=== PATIENT | female | born 1985 | race Caucasian/White ===

== ENCOUNTER 2021-07-20 14:42 | Emergency (ER) | payer MEDICAID ==
[2021-07-20 15:20] VITALS: O2SAT 98
--- NOTE | 2021-07-20 15:23 | ERPHSYRPT ---
- History of Present Illness Time Seen by Provider: 07/20/21 15:22 Source: patient Exam Limitations: no limitations Patient Subjective Stated Complaint: PT states "I am a parapleigic and I was getting help moving from the commode and heard my left ankle pop really loud. A lso my left knee has been bothering me." Triage Nursing Assessment: Pt presented alert and oriented X 3, skin pwd Pt ambulates with an upright steady gait, able to speak in clear full sentences pt in no apparent respiratory distress. Method of Injury: twisted Occurred: just prior to arrival Quality: intermittent Severity of Pain-Max: moderate Severity of Pain-Current: moderate Lower Extremities Pain: ankle: left Modifying Factors: Improves With: nothing Associated Symptoms: none Allergies/Adverse Reactions: No Known Drug Allergies Allergy (Verified 07/20/21 15:20) Home Medications: Baclofen 20 mg PO DAILY 07/20/21 [History] Citalopram Hydrobromide [Citalopram HBr] 40 mg PO DAILY 07/20/21 [History] Diazepam [Valium] 10 mg PO BID 07/20/21 [History] Ergocalciferol (Vitamin D2) [Vitamin D2] 1,250 mcg PO DAILY 07/20/21 [History] Gabapentin 300 mg [Neurontin 300 mg] 300 mg PO DAILY 07/20/21 [History] Medroxyprogesterone Acetate 150 mg IM WEEKLY 07/20/21 [History] Hx Tetanus, Diphtheria Vaccination/Date Given: No Hx Influenza Vaccination/Date Given: No Hx Pneumococcal Vaccination/Date Given: No Immunizations Up to Date: Yes Travel Risk - International Travel Have you traveled outside of the country in past 3 weeks: No - Coronavirus Screening Are you exhibiting any of the following symptoms?: No Close contact with a COVID-19 positive Pt in past 14-21 Days: No - Vaccine Status Have you recieved a Covid-19 vaccination: No - Review of Systems Constitutional: No Symptoms Eyes: No Symptoms, Foreign Body Sensation Ears, Nose, & Throat: No Symptoms Respiratory: No Cough, No Dyspnea Cardiac: No Chest Pain, No Edema, No Syncope Abdominal/Gastrointestinal: No Abdominal Pain, No Nausea, No Vomiting, No Diarrhea Genitourinary Symptoms: No Dysuria Musculoskeletal: No Back Pain, No Neck Pain Skin: No Rash Neurological: No Dizziness, No Focal Weakness, No Sensory Changes Psychological: No Symptoms Endocrine: No Symptoms All Other Systems: Reviewed and Negative - Past Medical History Pertinent Past Medical History: Yes Neurological History: Other ENT History: No Pertinent History Cardiac History: No Pertinent History Respiratory History: No Pertinent History Endocrine Medical History: No Pertinent History Musculoskeletal History: Fractures GI Medical History: Gallbladder Disease History: No Pertinent History Psycho-Social History: Anxiety Female Reproductive Disorders: No Pertinent History Other Medical History: ORTHOSTATIC HYPOTENSION, UTIS - Past Surgical History Past Surgical History: Yes Neuro Surgical History: No Pertinent History Cardiac: No Pertinent History Respiratory: No Pertinent History Gastrointestinal: Cholecystectomy Genitourinary: No Pertinent History Musculoskeletal: No Pertinent History Female Surgical History: Section Other Surgical History: egd - Social History Smoking Status: Former smoker How long have you smoked: 14 Exposure to second hand smoke: No Drug Use: marijuana Patient Lives Alone: No - Female History Hx Last Menstrual Period: depo Hx Now: No - Nursing Vital Signs Nursing Vital Signs: Initial Vital Signs Temperature 97.5 F 07/20/21 15:14 Pulse Rate 66 07/20/21 15:14 Respiratory Rate 20 07/20/21 15:14 Blood Pressure 123/78 07/20/21 15:14 O2 Sat by Pulse Oximetry 98 07/20/21 15:14 Pain Scale Pain Intensity 0 - Physical Exam General Appearance: no apparent distress Eyes, Ears, Nose, Throat Exam: normal ENT inspection Neck Exam: normal inspection, non-tender Cardiovascular/Respiratory Exam: chest non-tender, normal breath sounds Gastrointestinal/Abdominal Exam: non-tender, soft Back Exam: other (N/E) Foot Exam: left foot: limited range of motion, soft tissue tenderness SpO2: 98 Procedures - Splinting Location of Splint: Left Type of Splint: Other (addy) Splint Applied By: ED Nurse Pre-Proc Neuro Vasc Exam: normal Post-Proc Neuro Vasc Exam: neurovascular intact - Course Nursing assessment & vital signs reviewed: Yes - Radiology Exams Left Foot X-ray Interpretation: Interpreted by me, Negative - Progress Progress: improved Progress Note: 07/26/21 16:09 RICE with addy. Counseled pt/family regarding: lab results, diagnosis, need for follow-up, rad results - Departure Departure Disposition: Home Clinical Impression: Sprain and strain Condition: Stable Critical Care Time: No Referrals: TOM SNOW [Primary Care Provider] - Instructions: Ankle Sprain (DC) Additional Instructions: Recheck with PCP or orthopedic
--- NOTE | 2021-07-20 16:37 | XRAY ---
Indication: Trauma 2 months ago. Comparison: None 3 view left knee demonstrates osteopenia and minimal medial joint space narrowing. No other bony, articular, or soft tissue abnormalities.
--- NOTE | 2021-07-20 16:39 | XRAY ---
Indication: Trauma 2 months ago. Comparison: None 3 nonweightbearing views left foot demonstrates marked osteopenia. Posterior calcaneus deformity either developmental versus old injury. No acute fracture, dislocation, suspicious bony lesions, or soft tissue abnormalities.
--- NOTE | 2021-07-20 16:39 | XRAY ---
Indication: Trauma 2 months ago. Comparison: None 3 view left ankle demonstrates marked osteopenia. Posterior calcaneus deformity either developmental versus old injury. No acute fracture, dislocation, suspicious bony lesions, or soft tissue abnormalities.
[2021-07-20 17:28] VITALS: BP 130/85; PULSE 56
== END 2021-07-20 18:12 | disposition home or self-care (01) ==
LOC: ED 14:42
DX: S93.602A Unspecified sprain of left foot, initial encounter (principal); G82.20 Paraplegia, unspecified; Z79.899 Other long term (current) drug therapy
CPT/HCPCS: 73562; 73610; 73630; 99284

== ENCOUNTER 2022-08-15 22:02 | Emergency (ER) | payer MEDICAID ==
--- NOTE | 2022-08-15 22:40 | ERPHSYRPT ---
- History of Present Illness Historian: patient Exam Limitations: no limitations Patient Subjective Stated Complaint: pt states she has been having pain in her lt lower back and lt groin Triage Nursing Assessment: pt alert and oriented, answers questions approp. pt quadriplegic, bilat hands contracted. pt able to move bilat arms, lt leg. skin warm and dry. Physician History: 36 yo wf paraplegic presents w LLQ pain x 2 wks. Pain is 3/10 and aching. It radiates to her L flank and L CVA. Pt self caths and occ urinates on her own. Nothing makes the pain better or worse. She denies fever/N/V/D/dysuria/hematuria. Mother states that pt has evacuated her bowels. She does have sensation and some movement below her neck. Pt was seen at [facility] and completed a course of an antibiotic. Timing/Duration: other (2 wks) Activities at Onset: rest Quality: aching Abdominal Pain Onset Location: LLQ Pain Radiation: flank, back Severity of Pain-Max: moderate Severity of Pain-Current: mild Modifying Factors: Improves With: nothing Associated Symptoms: back, No chest pain, No diaphoresis, No diarrhea, No fever/chills, No fatigue, No headache, No heartburn, No loss of appetite, No nausea, No neck pain, No rash, No shortness of breath, No syncope, No vomiting, No weakness Previous symptoms: same symptoms as today Allergies/Adverse Reactions: No Known Drug Allergies Allergy (Verified 07/20/21 15:20) Home Medications: Baclofen 20 mg PO DAILY 07/20/21 [History] Citalopram Hydrobromide [Citalopram HBr] 40 mg PO DAILY 07/20/21 [History] Diazepam [Valium] 10 mg PO BID 07/20/21 [History] Ergocalciferol (Vitamin D2) [Vitamin D2] 1,250 mcg PO DAILY 07/20/21 [History] Gabapentin [Neurontin 300 mg] 300 mg PO DAILY 07/20/21 [History] Medroxyprogesterone Acetate 150 mg IM WEEKLY 07/20/21 [History] Hx Tetanus, Diphtheria Vaccination/Date Given: No Hx Influenza Vaccination/Date Given: No Hx Pneumococcal Vaccination/Date Given: No Immunizations Up to Date: No Travel Risk - International Travel Have you traveled outside of the country in past 3 weeks: No - Coronavirus Screening Are you exhibiting any of the following symptoms?: No Close contact with a COVID-19 positive Pt in past 14-21 Days: No - Vaccine Status Have you recieved a Covid-19 vaccination: No - Review of Systems Constitutional: No Symptoms Eyes: No Symptoms Ears, Nose, & Throat: No Symptoms Respiratory: No Symptoms Cardiac: No Symptoms Abdominal/Gastrointestinal: No Symptoms, Abdominal Pain Genitourinary Symptoms: No Symptoms Musculoskeletal: No Symptoms Skin: No Symptoms Neurological: No Symptoms Psychological: No Symptoms Endocrine: No Symptoms Hematologic/Lymphatic: No Symptoms Immunological/Allergic: No Symptoms - Past Medical History Pertinent Past Medical History: Yes Neurological History: Other ENT History: No Pertinent History Cardiac History: No Pertinent History Respiratory History: No Pertinent History Endocrine Medical History: No Pertinent History Musculoskeletal History: Fractures GI Medical History: Gallbladder Disease History: No Pertinent History Psycho-Social History: Anxiety Female Reproductive Disorders: No Pertinent History Other Medical History: quadriplegic, UTIS - Past Surgical History Past Surgical History: Yes Neuro Surgical History: No Pertinent History Cardiac: No Pertinent History Respiratory: No Pertinent History Gastrointestinal: Cholecystectomy Genitourinary: No Pertinent History Musculoskeletal: No Pertinent History Female Surgical History: Section Other Surgical History: egd - Social History Smoking Status: Former smoker How long have you smoked: 14 Exposure to second hand smoke: No Drug Use: marijuana Patient Lives Alone: No Significant Family History: no pertinent family hx - Female History Hx Now: No - Nursing Vital Signs Nursing Vital Signs: Initial Vital Signs Temperature 97.7 F 08/15/22 22:07 Pulse Rate 79 08/15/22 22:07 Respiratory Rate 16 08/15/22 22:07 Blood Pressure 142/81 08/15/22 22:07 O2 Sat by Pulse Oximetry 96 08/15/22 22:07 Pain Scale Pain Intensity 3 Hypertensive - Physical Exam General Appearance: no apparent distress, alert Eye Exam: PERRL/EOMI, eyes nml inspection Ears, Nose, Throat Exam: normal ENT inspection, TMs normal, pharynx normal, moist mucous membranes Neck Exam: normal inspection Respiratory Exam: normal breath sounds, lungs clear, airway intact, No chest tenderness, No respiratory distress Cardiovascular Exam: regular rate/rhythm, normal heart sounds, capillary refill <2 sec, No murmur Gastrointestinal/Abdomen Exam: soft, normal bowel sounds, tenderness (Very mild LLQ TTP ) Back Exam: normal inspection Extremity Exam: normal inspection Neurologic Exam: alert, oriented x 3, cooperative, normal mood/affect Skin Exam: normal color, warm, dry Lymphatic Exam: No adenopathy SpO2 Interpretation: normal SpO2: 96 O2 Delivery: Room Air - Course Nursing assessment & vital signs reviewed: Yes - CT Exams Abdomen/Pelvis CT Interpretation: Tele-radiologist Report (Nothing acute) Ordered Tests: Active Orders 24 hr Category Date Time Status cath [Cath for Specimen-Straight] STAT Care 08/15/22 22:29 Active ABDOMEN AND PELVIS W/0 CONTRAS [CT] Stat Exams 08/15/22 22:26 Taken CBC W DIFF Stat Lab 08/15/22 23:06 Completed CMP Stat Lab 08/15/22 23:06 Completed CULTURE,URINE Stat Lab 08/15/22 22:29 Received Lactic Acid Stat Lab 08/15/22 23:00 Completed UA W/RFX CULTURE Stat Lab 08/15/22 22:29 Completed Medication Summary Generic Name Dose Route Start Last Admin Trade Name Kesha PRN Reason Stop Dose Admin Hydrocodone Bitart/Acetaminophen 1 tab 08/15/22 23:35 Hydrocodone/Apap 5/325 Mg Tablet PO 08/15/22 23:36 STAT ONE Ceftriaxone Sodium 1,000 mg 08/15/22 23:34 Ceftriaxone Sodium 1000 Mg Inj Vial IM 08/15/22 23:35 STAT ONE Lab/Rad Data: Laboratory Result Diagrams 08/15/22 23:06 08/15/22 23:06 Laboratory Results 08/15/22 08/15/22 08/15/22 Range/Units 23:06 23:06 23:00 WBC 11.4 H (4.0-10.5) x10^3/uL RBC 4.46 (4.1-5.4) x10^6/uL Hgb 13.2 (12.0-16.0) g/dL Hct 40.5 (35-47) % MCV 90.8 (78-100) fL MCH 29.6 (26-32) pg MCHC 32.6 (32-36) g/dL RDW 12.9 (11.5-14.0) % Plt Count 261 (150-450) x10^3/uL MPV 11.2 H (7.5-11.0) fL Gran % 68.0 H (36.0-66.0) % Immature Gran % (Auto) 0.4 (0.00-0.4) % Nucleat RBC Rel Count 0.0 (0.00-0.1) % Eos # (Auto) 0.11 (0-0.5) x10^3/uL Immature Gran # (Auto) 0.04 H (0.00-0.03) x10^3u/L Absolute Lymphs (auto) 2.83 (1.0-4.6) x10^3/uL Absolute Monos (auto) 0.61 (0.0-1.3) x10^3/uL Absolute Nucleated RBC 0.00 (0.00-0.01) x10^3u/L Lymphocytes % 24.9 (24.0-44.0) % Monocytes % 5.4 (0.0-12.0) % Eosinophils % 1.0 (0.00-5.0) % Basophils % 0.3 (0.0-0.4) % Absolute Granulocytes 7.76 H (1.4-6.9) x10^3/uL Basophils # 0.03 (0-0.4) x10^3/uL Sodium 137 (137-145) mmol/L Potassium 3.7 (3.5-5.1) mmol/L Chloride 107 (98-107) mmol/L Carbon Dioxide 22 (22-30) mmol/L Anion Gap 12.7 (5-15) MEQ/L BUN 9 (7-17) mg/dL Creatinine 0.53 (0.52-1.04) mg/dL Estimated GFR > 60.0 ML/MIN Glucose 100 (74-106) mg/dL Lactic Acid 1.5 (0.4-2.0) Calcium 9.5 (8.4-10.2) mg/dL Total Bilirubin 0.50 (0.2-1.3) mg/dL AST 20 (14-36) U/L ALT 23 (0-35) U/L Alkaline Phosphatase 110 (38-126) U/L Serum Total Protein 7.3 (6.3-8.2) g/dL Albumin 4.4 (3.5-5.0) g/dL Urinalys Dipstick Clnc Urine Color (YELLOW) Urine Appearance (CLEAR) Urine pH (5-6) Ur Specific [place] (1.005-1.025) POC Urine Protein Conf (Negative) Urine Ketones (NEGATIVE) Urine Nitrite (NEGATIVE) Urine Bilirubin (NEGATIVE) Urine Urobilinogen (0-1) mg/dL Urine Leukocytes (NEGATIVE) Urine WBC (Auto) (0-5) /HPF Urine RBC (Auto) (0-2) /HPF U Epithel Cells (Auto) (FEW) /HPF Urine Bacteria (Auto) (NEGATIVE) /HPF Urine RBC (0-5) [place]/ul Urine Mucus (Auto) (NEGATIVE) /HPF Ur Culture Indicated? Urine Glucose (NEGATIVE) mg/dL 08/15/22 Range/Units 22:29 WBC (4.0-10.5) x10^3/uL RBC (4.1-5.4) x10^6/uL Hgb (12.0-16.0) g/dL Hct (35-47) % MCV (78-100) fL MCH (26-32) pg MCHC (32-36) g/dL RDW (11.5-14.0) % Plt Count (150-450) x10^3/uL MPV (7.5-11.0) fL Gran % (36.0-66.0) % Immature Gran % (Auto) (0.00-0.4) % Nucleat RBC Rel Count (0.00-0.1) % Eos # (Auto) (0-0.5) x10^3/uL Immature Gran # (Auto) (0.00-0.03) x10^3u/L Absolute Lymphs (auto) (1.0-4.6) x10^3/uL Absolute Monos (auto) (0.0-1.3) x10^3/uL Absolute Nucleated RBC (0.00-0.01) x10^3u/L Lymphocytes % (24.0-44.0) % Monocytes % (0.0-12.0) % Eosinophils % (0.00-5.0) % Basophils % (0.0-0.4) % Absolute Granulocytes (1.4-6.9) x10^3/uL Basophils # (0-0.4) x10^3/uL Sodium (137-145) mmol/L Potassium (3.5-5.1) mmol/L Chloride (98-107) mmol/L Carbon Dioxide (22-30) mmol/L Anion Gap (5-15) MEQ/L BUN (7-17) mg/dL Creatinine (0.52-1.04) mg/dL Estimated GFR ML/MIN Glucose (74-106) mg/dL Lactic Acid (0.4-2.0) Calcium (8.4-10.2) mg/dL Total Bilirubin (0.2-1.3) mg/dL AST (14-36) U/L ALT (0-35) U/L Alkaline Phosphatase (38-126) U/L Serum Total Protein (6.3-8.2) g/dL Albumin (3.5-5.0) g/dL Urinalys Dipstick Clnc MAIN LAB Urine Color YELLOW (YELLOW) Urine Appearance SLIGHTLY CLOUDY (CLEAR) Urine pH 6.5 (5-6) Ur Specific [place] 1.020 (1.005-1.025) POC Urine Protein Conf NEGATIVE (Negative) Urine Ketones MODERATE-40 (NEGATIVE) Urine Nitrite POSITIVE (NEGATIVE) Urine Bilirubin NEGATIVE (NEGATIVE) Urine Urobilinogen 1 (0-1) mg/dL Urine Leukocytes NEGATIVE (NEGATIVE) Urine WBC (Auto) 0-2 (0-5) /HPF Urine RBC (Auto) 11-15 (0-2) /HPF U Epithel Cells (Auto) RARE (FEW) /HPF Urine Bacteria (Auto) MANY (NEGATIVE) /HPF Urine RBC MODERATE (0-5) [place]/ul Urine Mucus (Auto) SLIGHT (NEGATIVE) /HPF Ur Culture Indicated? YES Urine Glucose NEGATIVE (NEGATIVE) mg/dL - Progress Progress: improved Progress Note: 08/15/22 23:36 1gm IM Rocephin 08/15/22 23:37 Norco5 po x1 Counseled pt/family regarding: lab results, diagnosis, need for follow-up, rad results - Departure Departure Disposition: Home Clinical Impression: UTI (urinary tract infection) Condition: Stable Critical Care Time: No Referrals: TOM SNOW [Primary Care Provider] - Follow up/PCP as directed Instructions: Urinary Tract Infection, Adult (DC) Additional Instructions: Pain meds as needed Continue with Cipro tomorrow Follow up with your family MD in 1-2 days Return to ER for increasing pain or temperature greater than 100.5 Prescriptions: Ciprofloxacin [Cipro 500 MG] 500 mg PO BID #10 tablet
[2022-08-15 22:45] LABS: Bacteria MANY /HPF (NEGATIVE); Epithelial Cells RARE /HPF (FEW); Mucus SLIGHT /HPF (NEGATIVE); WBC 0-2 /HPF (0-5)
[2022-08-15 22:46] LABS: Appearance SLIGHTLY CLOUDY (CLEAR); Bilirubin NEGATIVE (NEGATIVE); Dipstick done @ ? MAIN LAB; Glucose NEGATIVE (NEGATIVE); Ketones MODERATE-40 (NEGATIVE); Nitrite POSITIVE (NEGATIVE); Ph 6.5 (5-6); Protein,Urine Dip NEGATIVE (Negative); RBC MODERATE Ery/ul (0-5); Urobilinogen 1 mg/dL (0-1)
[2022-08-15 22:47] LABS: Urine Cultured Indicated? YES
[2022-08-15 23:08] LABS: Absolute Neutrophil Ct (ANC) 7.76 x10^3/uL (1.4-6.9); Basophil (Absolute #) 0.03 x10^3/uL (0-0.4); Eosinophil (Absolute #) 0.11 x10^3/uL (0-0.5); Hematocrit 40.5 % (35-47); Hemoglobin 13.2 g/dL (12.0-16.0); Lymphocyte (Absolute #) 2.83 x10^3/uL (1.0-4.6); Lymphocytes % 24.9 % (24.0-44.0); Mean Cell Volume 90.8 fL (78-100); Mean Corpuscular Hemoglobin 29.6 pg (26-32); Mean Corpuscular Hgb Concent. 32.6 g/dL (32-36); Mean Platelet Volume 11.2 fL (7.5-11.0); Monocyte (Absolute #) 0.61 x10^3/uL (0.0-1.3); Monocytes % 5.4 % (0.0-12.0); Platelet Count 261 x10^3/uL (150-450); Red Blood Count 4.46 x10^6/uL (4.1-5.4); Red Cell Distribution Width 12.9 % (11.5-14.0); White Blood Count 11.4 x10^3/uL (4.0-10.5)
[2022-08-15 23:23] LABS: ALBUMIN 4.4 g/dL (3.5-5.0); ALKALINE PHOSPHATASE 110 U/L (38-126); ANION GAP 12.7 MEQ/L (5-15); BLOOD UREA NITROGEN 9 mg/dL (7-17); CHLORIDE 107 mmol/L (98-107); Calcium 9.5 mg/dL (8.4-10.2); Carbon Dioxide 22 mmol/L (22-30); Creatinine 1 0.53 mg/dL (0.52-1.04); EST GLOMERULAR FILTRATION RATE > 60.0 ML/MIN; Glucose 100 mg/dL (74-106); Potassium 3.7 mmol/L (3.5-5.1); SGOT/AST 20 U/L (14-36); SGPT/ALT 23 U/L (0-35); SODIUM 137 mmol/L (137-145); Total Protein 7.3 g/dL (6.3-8.2)
[2022-08-15] MEDS ORDERED: Rocephin 1000 MG INJ IM ONE (23:34)
[2022-08-15] MEDS ORDERED: NORCO 5/325 MG PO ONE ×2 (23:35)
[2022-08-15] MEDS ORDERED: Rocephin 1000 MG INJ ONE (23:41)
[2022-08-15] MEDS ORDERED: NORCO 5/325 MG ONE (23:41)
[2022-08-15] MEDS ORDERED: XYLOCAINE 1% HCL 20 ML MDV ONE (23:44)
[2022-08-15] MEDS ORDERED: Cipro 500 MG ONE (23:54)
[2022-08-16 00:11] VITALS: BP 123/92; PULSE 78; O2SAT 98
--- NOTE | 2022-08-16 08:59 | XRAY ---
Indication: Left flank pain. Quadriplegia. Multiple contiguous axial images obtained through the abdomen and pelvis without contrast. Comparison: April 25, 2015. Lung bases demonstrates minimal fibrosis/scarring. No focal infiltrate or consolidation.. Heart not enlarged. New small hiatal hernia. Noncontrasted stomach and bowel loops nonobstructed again with normal appendix. Mild diffuse scattered colonic fecal debris. Again cholecystectomy. No free fluid/air. New nonobstructing left renal punctate calculus. Remaining liver, pancreas, spleen, adrenal glands, kidneys, ureters, bladder, and uterus are unremarkable for noncontrast exam. Mild scattered aortoiliac calcifications without AAA. Osseous structures intact with new remote T12 superior endplate fracture with less than 25% height loss. Right gluteal subcutaneous air bubbles presumed iatrogenic. Impression: 1. New findings mild diffuse fecal stasis, nonobstructing left renal punctate calculus, small hiatal hernia, and remote T12 endplate fracture. 2. Remaining CT abdomen/pelvis without contrast exam is negative. Comment: Preliminary interpretation made by [facility]. No critical discrepancy.
[2022-08-16] MEDS ORDERED: Cipro 500 MG PO ONE (23:40)
== END 2022-08-16 00:28 | disposition home or self-care (01) ==
LOC: ED 22:02
DX: N39.0 Urinary tract infection, site not specified (principal); R10.32 Left lower quadrant pain; G82.50 Quadriplegia, unspecified; Z79.899 Other long term (current) drug therapy; Z28.310 Unvaccinated for COVID-19
CPT/HCPCS: 36415; 74176; 80053; 81015; 83605; 85025; 87077; 87086; 87186; 96372; 99284; P9612; J0696; A9270-GY

== ENCOUNTER 2022-10-23 05:03 | Day surgery (SDC) | payer MEDICAID ==
[2022-10-23] MEDS ORDERED: Lactated Ringers 1,000 ML IV SCH (05:30)
[2022-10-23] MEDS ORDERED: CEFAZOLIN 2 GM-D5W BAG** 2 GM/50 ML ML IV SCH (05:30)
[2022-10-23] MEDS ORDERED: XYLOCAINE 1% HCL 20 ML MDV ONE (06:13)
[2022-10-23] MEDS ORDERED: Xylocaine 1% Vial 30 ML PF IJ ONE (06:15)
[2022-10-23] MEDS ORDERED: Marcaine Mpf 0.5% Vial 30 Ml ONE (06:17)
[2022-10-23] MEDS ORDERED: DIPRIVAN 200 MG/20 ML IV ONE (06:31)
[2022-10-23] MEDS ORDERED: SUBLIMAZE 100 MCG/2 ML ONE (06:31)
[2022-10-23] MEDS ORDERED: Zofran 4 MG/2 ML VIAL ONE (06:31)
[2022-10-23] MEDS ORDERED: Versed 2 MG/2 ML Injection ONE (06:31)
[2022-10-23] MEDS ORDERED: Decadron 4 MG INJ ONE (06:31)
[2022-10-23] MEDS ORDERED: Xylocaine-Mpf 2% 5 Ml Vial ONE (06:31)
[2022-10-23] MEDS ORDERED: Kenalog-40 ONE (06:51)
[2022-10-23 08:17] VITALS: O2SAT 100
[2022-10-23 08:48] VITALS: BP 144/98; PULSE 66
--- NOTE | 2022-10-23 12:01 | OP ---
SURGERY DATE/TIME: 10/23/2022 0642 PREOPERATIVE DIAGNOSES: 1) Incomplete paralysis right foot. 2) Right foot drop. 3) Rigid equinus. 4) Left plantaris fasciitis and pain. 5) Pain in left foot. POSTOPERATIVE DIAGNOSES: 1) Incomplete paralysis right foot. 2) Right foot drop. 3) Rigid equinus. 4) Left plantaris fasciitis and pain. 5) Pain in left foot. PROCEDURES: 1) Right tendon Achilles lengthening. 2) Left plantar fascial injection. SURGEON: Flakito Javier DPM. FIRST CALENDER WORKER: None. ANESTHESIA: General. HEMOSTASIS: Pressure dressing. ESTIMATED BLOOD LOSS: Less than 3 cc. MATERIALS: 3-0 Nylon. INJECTABLES: 16 cc of 1:1 mixture of 1% lidocaine plain and 1 cc Kenalog left foot with 3 cc lidocaine plain and 5% bupivacaine plain in a 1:1 mixture for 6 cc with an additional 1 cc of 40 mg/kg Kenalog to the right foot. These blocks were injected to the percutaneous stab incisions to the right ankle. INDICATION FOR SURGERY: Basil is a very pleasant 36-year-old female who presented to my office back in July of 2022 with concerns over an incomplete paralysis of the lower extremity as well as a rigid equinus with foot drop to the right lower extremity. The patient indicates that she has had a flexion contracture. However, there has been some changes in the contracture over recent history. The patient was independent and was able to transfer and ambulate with assistance device up until recently. However due to the worsening equinus contracture, the patient has been unable to perform this activity. The patient's equinus was clinically assessed to be the main component of her deformity and driving force of her inability to ambulate appropriately. She has rigid gastrocnemius equinus and unable even with Silverskold test to get past 45 degrees of plantar flexion at the ankle joint. Discussion was had with the patient in regards to treatment options. The patient understands that the goal of the procedure is not necessarily to correct the issue. However, it is to make her braceable so that she feels more stable with ambulation and assistive device going forward. Plenty of time was allowed for the patient to ask questions. All risks, benefits and complications of surgical intervention were discussed including but not limited to infection, hematoma, seroma, possible delayed healing, possible rupture of Achilles tendon, possible need for surgical intervention at a later date. No guarantees were provided as to the outcome of the intervention. She understands all of this and plenty of time was allowed for questions to be asked which were answered to the patient and her family apparent satisfaction. It is with that we decided to proceed. DESCRIPTION OF PROCEDURE AND FINDINGS: The patient was brought into the OR and placed on the OR table in the supine position. At this time general anesthesia was administered. At this time it was felt important to once again test the patient under general anesthesia and the rigid gastrocnemius equinus was still present as indicated in the Silverskold test. Following this, the right lower extremity was prepped and draped in the typical sterile fashion. At this time attention was directed to the insertion of the Achilles tendon of the right ankle. Landmarks were drawn out drawing out the borders of the Achilles tendon. Measurements were taken 2 cm from the insertion of the Achilles tendon at the medial aspect 5 cm, at the lateral aspect 8 cm at the medial aspect once again. A line was drawn down the center of the Achilles tendon deemed what was believed to be the center of the tendon. At this time an 11 blade was introduced in a vertical fashion along with the fibers of the Achilles tendon turned inside the Achilles tendon and tenting the skin making cuts along the planned operative sites. As the procedure was performed, the Achilles tendon was lengthened. It was shown following the procedure the patient was able to get above 90 degrees of dorsiflexion with some pressure applied to the forefoot. At this time stitches were applied in a simple interrupted-type fashion with 3-0 Nylon. A block consisting of 10 cc of a 1:1 mixture of 1% lidocaine plain and 0.5% bupivacaine plain was injected along the incisions at the posterior aspect of the heel. A dressing consisting of Betadine, Adaptic, 4x4 and a well-padded posterior splint was applied to the patient's right lower extremity this dried in a dorsiflexed position. At this time the drapes were taken down and under aseptic technique a plantar fascial injection was performed at the point of tenderness to the left calcaneus at the medial calcaneal tubercle. Band-Aid was applied to this site. The patient was then reversed from anesthesia and returned to the postoperative anesthesia care unit with vital signs stable and vascular status intact. The patient handled the anesthesia as well as the procedure without significant complication. Postoperative orders as indicated in the patient's discharge chart.
== END 2022-10-23 08:45 | disposition home or self-care (01) ==
LOC: SDC 05:03
PROVIDERS: ATTEND Podiatrist Foot & Ankle Surgery
DX: M21.371 Foot drop, right foot (principal); R29.898 Other symptoms and signs involving the musculoskeletal system; M21.6X1 Other acquired deformities of right foot; M79.672 Pain in left foot; M72.2 Plantar fascial fibromatosis
CPT/HCPCS: 20550; 27685; 36415; 84703; J0690; J1100; J2001; J2250; J2405; J2704; J3010; J3301

== ENCOUNTER 2022-12-25 08:55 | Day surgery (SDC) | payer MEDICAID ==
[2022-12-25] MEDS ORDERED: Versed 2 MG/2 ML Injection IV ONE (08:56)
[2022-12-25] MEDS ORDERED: Xylocaine-Mpf 2% 5 Ml Vial IJ ONE (08:56)
[2022-12-25] MEDS ORDERED: SUBLIMAZE 100 MCG/2 ML IV ONE (08:56)
[2022-12-25] MEDS ORDERED: DIPRIVAN 200 MG/20 ML IV ONE (08:56)
[2022-12-25] MEDS ORDERED: Lactated Ringers 1,000 ML IV SCH (10:00)
[2022-12-25] MEDS ORDERED: Lactated Ringers 1,000 ML IV ONE (10:17)
[2022-12-25] MEDS ORDERED: CEFAZOLIN 2 GM-D5W BAG** 2 GM/50 ML ML IV ONE (10:42)
[2022-12-25] MEDS ORDERED: CEFAZOLIN 2 GM-D5W BAG** 2 GM/50 ML ML IV SCH (11:00)
[2022-12-25 11:06] LABS: ANION GAP 12.2 MEQ/L (5-15); BLOOD UREA NITROGEN 9 mg/dL (7-17); CHLORIDE 107 mmol/L (98-107); Calcium 9.4 mg/dL (8.4-10.2); Carbon Dioxide 25 mmol/L (22-30); Creatinine 1 0.69 mg/dL (0.52-1.04); EST GLOMERULAR FILTRATION RATE > 60.0 ML/MIN; Glucose 85 mg/dL (74-106); Potassium 3.6 mmol/L (3.5-5.1); SODIUM 140 mmol/L (137-145)
[2022-12-25] MEDS ORDERED: XYLOCAINE 1% HCL 20 ML MDV ONE (11:38)
[2022-12-25] MEDS ORDERED: Marcaine Mpf 0.5% Vial 30 Ml ONE (11:38)
[2022-12-25 13:30] VITALS: BP 125/74; PULSE 67; O2SAT 100
--- NOTE | 2022-12-26 09:02 | OP ---
SURGERY DATE/TIME: 12/25/2022 4740 PREOPERATIVE DIAGNOSES: 1) Plantar fasciitis left foot. 2) Pain left foot. POSTOPERATIVE DIAGNOSES: 1) Plantar fasciitis left foot. 2) Pain left foot. PROCEDURE: Instep fasciotomy left foot. SURGEON: Flakito Javier DPM. WIRE COILER: None. ANESTHESIA: General. HEMOSTASIS: Ankle tourniquet set to 250 mm of Mercury for approximately 4 minutes. ESTIMATED BLOOD LOSS: Less than 2 cc. INJECTABLES: 10 cc of a 1:1 mixture of 1% of lidocaine plain and 0.5% bupivacaine plain injected in a V-block type fashion. INDICATION FOR SURGERY: Basil is a very pleasant 37-year-old female who is well known to my service for the loss of ability to transfer and ambulate over the course of the last several months. The patient did develop an equinus to the right foot which was addressed utilizing a percutaneous DOREEN and she is now able to put pressure at 90 degrees and is braceable to the right foot. At this time her only limitation was secondary as far as ambulation and pain was to her left foot where she had significant amount of pain with palpation of the medial calcaneal tubercle. At this time an MRI was obtained demonstrating a severely thickened plantar fascia. Discussion with the patient in regards to options of treatment and the patient wishes to proceed with instep fasciotomy. The patient understands all risks, complications and potential success of the procedure including but not limited to failure rate of approximately 7% and possible need for further intervention at a later date. There is a possibility that this procedure does not succeed, she is well aware of that fact. However, the goal is to get her pain free secondary to her contracture plantar fasciitis does seem to be the most relevant pathology and the patient understands how this decision was made. It is with that we decided to proceed at this time. DESCRIPTION OF PROCEDURE AND FINDINGS: The patient was brought into the OR and placed on the OR table in the supine position. At this time, general anesthesia was administered. A well-padded ankle tourniquet was applied to the left foot. The left foot was then prepped and draped in the typical sterile fashion and lowered onto the surgical field. An Esmarch was utilized to exsanguinate the leg and the tourniquet was set to 250 mm of Mercury. At this time a skin marker was utilized to make a planning site just 1 cm distal to the weightbearing surface at the instep of the medial arch. At this time a 15 blade was utilized to make an incision down to the level of the subcutaneous tissue. Blunt dissection was carried down to the level of the plantar fascia which a Sundt was introduced in order to retract the skin edges. Following this a clean 15 blade was then utilized to resect the medial and central bones from the plantar fascia partially this was identified as well as the digitorum brevis muscle belly underneath was then visualized. Following this, copious amounts of sterile saline were utilized to flush the site. 4-0 Monocryl was utilized to coapt the subcutaneous skin edges and 4-0 Nylon was utilized in a horizontal mattress-type fashion to coapt the skin edges in inverted-type fashion. A dressing consisting of Betadine, Adaptic, 4x4, Kerlix and BRENDEN was applied to the patient's left foot. Total tourniquet time was 4 minutes. The patient was returned to the postoperative anesthesia care unit with vital signs stable and vascular status intact. The patient handled the anesthesia as well as the procedure. Postoperative orders as indicated in the patient's discharge chart.
== END 2022-12-25 13:45 | disposition home or self-care (01) ==
LOC: SDC 08:55
PROVIDERS: ATTEND Podiatrist Foot & Ankle Surgery
DX: M72.2 Plantar fascial fibromatosis (principal); M79.672 Pain in left foot
CPT/HCPCS: 36415; 80048; 93005; J0690; J2250; J2704; J3010

== ENCOUNTER 2023-03-15 07:55 | Day surgery (SDC) | payer MEDICAID ==
[2023-03-15] MEDS ORDERED: Lactated Ringers 1,000 ML IV SCH (08:30)
[2023-03-15] MEDS ORDERED: CEFAZOLIN 2 GM-D5W BAG** 2 GM/50 ML ML IV SCH (08:30)
[2023-03-15] MEDS ORDERED: CEFAZOLIN 2 GM-D5W BAG** 2 GM/50 ML ML IV ONE (08:38)
[2023-03-15] MEDS ORDERED: Lactated Ringers 1,000 ML IV ONE ×2 (08:38→13:20)
[2023-03-15 09:19] LABS: Hematocrit 41.4 % (35-47); Hemoglobin 13.1 g/dL (12.0-16.0); Mean Cell Volume 90.6 fL (78-100); Mean Corpuscular Hemoglobin 28.7 pg (26-32); Mean Corpuscular Hgb Concent. 31.6 g/dL (32-36); Mean Platelet Volume 11.9 fL (7.5-11.0); Platelet Count 232 x10^3/uL (150-450); Red Blood Count 4.57 x10^6/uL (4.1-5.4); Red Cell Distribution Width 14.2 % (11.5-14.0); White Blood Count 10.9 x10^3/uL (4.0-10.5)
[2023-03-15 09:37] LABS: ALBUMIN 4.1 g/dL (3.5-5.0); ALKALINE PHOSPHATASE 99 U/L (38-126); ANION GAP 12.4 MEQ/L (5-15); BLOOD UREA NITROGEN 11 mg/dL (7-17); CHLORIDE 106 mmol/L (98-107); Calcium 9.2 mg/dL (8.4-10.2); Carbon Dioxide 28 mmol/L (22-30); Creatinine 1 0.64 mg/dL (0.52-1.04); EST GLOMERULAR FILTRATION RATE > 60.0 ML/MIN; Glucose 90 mg/dL (74-106); Potassium 4.1 mmol/L (3.5-5.1); SGOT/AST 23 U/L (14-36); SGPT/ALT 19 U/L (0-35); SODIUM 142 mmol/L (137-145); Total Protein 7.4 g/dL (6.3-8.2)
[2023-03-15 09:38] LABS: INR 0.97 (0.8-3.0); PROTIME 10.6 SECONDS (9.4-12.5); PTT 24.2 SECONDS (25.1-36.5)
[2023-03-15 09:47] LABS: HCG SERUM TEST NEGATIVE (NEGATIVE)
[2023-03-15] MEDS ORDERED: Versed 2 MG/2 ML Injection ONE (10:47)
[2023-03-15] MEDS ORDERED: DIPRIVAN 200 MG/20 ML IV ONE (10:48)
[2023-03-15] MEDS ORDERED: Xylocaine-Mpf 2% 5 Ml Vial ONE (10:48)
[2023-03-15] MEDS ORDERED: Zofran 4 MG/2 ML VIAL ONE (10:48)
[2023-03-15] MEDS ORDERED: Decadron 4 MG INJ ONE (10:48)
[2023-03-15] MEDS ORDERED: SUBLIMAZE 100 MCG/2 ML ONE ×2 (10:48→16:16)
[2023-03-15] MEDS ORDERED: Zemuron 100 MG/10 ML ONE ×2 (10:56→14:40)
[2023-03-15] MEDS ORDERED: Ephedrine Sulfate 50 MG/ML ONE (11:06)
[2023-03-15] MEDS ORDERED: XYLOCAINE 1% HCL 20 ML MDV ONE (12:37)
[2023-03-15] MEDS ORDERED: Marcaine Mpf 0.5% Vial 30 Ml ONE (12:37)
[2023-03-15] MEDS ORDERED: BRIDION 200MG/2ML IV ONE (13:46)
[2023-03-15] MEDS ORDERED: ROBINUL ONE (14:17)
[2023-03-15 15:12] LABS: Appearance Cloudy (Clear); Bacteria Many /HPF (None Seen); Bilirubin Negative (Negative); Blood Small (Negative); Epithelial Cells Rare /HPF (None Seen); Glucose, Urine Negative (Negative); Ketones Negative (Negative); Leukocyte Esterase Small (Negative); Nitrite Positive (Negative); Protein,Urine Dip Negative (Negative)
--- NOTE | 2023-03-15 15:50 | XRAY ---
Indication: Right foot hammertoe correction. Intraoperative fluoroscopy provided for 1 minute 23 seconds. 14 digital spot images submitted for interpretation ultimately demonstrates 1st-4th toe arthrodesis with intact hardware. Correlate with intraoperative findings/report.
--- NOTE | 2023-03-15 15:52 | XRAY ---
Indication: Left foot hammertoe correction. Intraoperative fluoroscopy provided for 1 minute 44 seconds. 6 digital spot images submitted for interpretation ultimately demonstrates second-4th toe arthrodesis with intact hardware. Correlate with intraoperative findings/report.
[2023-03-15] MEDS ORDERED: TORAdol 30 mg Injection ONE (15:53)
[2023-03-15 17:15] VITALS: BP 117/66; PULSE 74; O2SAT 95
--- NOTE | 2023-03-16 08:48 | XRAY ---
1 minute 44 seconds of fluoroscopy was used in surgery for a left foot hammer toe correction.
--- NOTE | 2023-03-16 08:48 | XRAY ---
1 minute 23 seconds of fluoroscopy was used in surgery for a right foot hammertoe correction.
--- NOTE | 2023-03-18 12:02 | OP ---
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 2) Pain left foot. 3) Pain right foot. 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 5) Difficulty with ambulation. 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 2) Pain left foot. 3) Pain right foot. 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 5) Difficulty with ambulation. PROCEDURES: 1) Right foot Aparicio tenosuspension. 2) Right foot hammer toe correction to digits 2, 3, 4 and 5. 3) Left foot hammer toe correction to digits 2, 3, 4 and 5. SURGEON: Flakito Javier DPM. [employer] [place] [employer] [place]: None. ANESTHESIA: General. HEMOSTASIS: Thigh tourniquet set to 300 mm of Mercury to the left and right thigh with a total of 60 total tourniquet minutes to the right and 42 total tourniquet minutes to the left. ESTIMATED BLOOD LOSS: Approximately 20 cc. INJECTABLES: 30 cc of 1:1 mixture of 1% lidocaine plain and 0.5% bupivacaine plain injected in an ankle block-type fashion to the right and left ankles. MATERIALS: 1) For the right: One - 4.0 x 40 mm variable pitch compression screw with a 10 x 8 staple, 5 x 10 proximal bolt for the tendon transfer, two - 3.0 x 36 and 34 respectively for the second and third digits and one - 2.5 x 28 headless compression screw to the right for the fourth digit. 2) For the left: One - 3.0 x 36 headless compression screw, 3.0 x 34 headless compression screw and a 2.5 x 26 headless compression screw for the left second, third and fourth digits. INDICATION FOR SURGERY: Basil is a very pleasant 37-year-old female very well known to my service for incomplete paralysis. In the months previous to the patient presenting to my service, she has had some difficulty with ambulation secondary to incomplete paralysis. She was at a facility working very aggressively with physical therapy in order to get her weightbearing. At a certain point during the course, the patient had progressive equinus contracture, digital contractures as well as pain to the left heel which was later diagnosed to be plantar fasciitis. The patient has had subsequent surgeries for the equinus contracture to the right lower extremity and the plantar fasciitis to the left with good success. We had planned staged procedures at this time in order to get her in appropriate weightbearing status. She had done very well thus far and now we are planning the last stage in our operative procedure with correction of her hammer toe as well as the hallux malleus to the right lower extremity. The patient understands following this procedure we will provide admission to a [facility] facility with the specific skill of being aggressive with physical therapy in order to get her back up and on her feet as over the course of the last several months she has deteriorated physically and has not been able to stand on her own two feet. The procedures that we have been performing have been able to get her braced and at this point she is able to perform transfers. However, the hammer toes have added to the problems of pain with ambulation and shoe gear at this time. The patient understands all risks, benefits and complications of surgical intervention at this time including but not limited to infection, hematoma, seroma, possibility of delayed wound healing, nonwound healing, possibility of delayed bone healing or nonbone healing, possibility of failure of surgical hardware and possible need for surgical intervention at a later date. There were no guarantees that are provided to these procedures. The patient has understood and has been informed of the potential risk. Plenty of time was allowed for the patient to ask questions which were answered to her apparent satisfaction. It is with that we decided to proceed. DESCRIPTION OF PROCEDURE AND FINDINGS: The patient was brought into the OR and placed on the OR table in the supine position. At this time general anesthesia was administered until the patient was sedated. Thigh tourniquets were applied to the bilateral lower extremity and set to 300 mm of Mercury. At this time bilateral lower extremities was prepped and draped in the typical sterile fashion and lowered onto the surgical field. At this time an Esmarch was utilized to exsanguinate the right leg. The tourniquet was inflated. The tourniquet was inflated and attention was directed to the first metatarsophalangeal joint where a linear incision was made down to the level of the extensor hallucis longus tendon being careful not to damage any neurovascular structures along the way this was followed to the distal interphalangeal joint where the extensor hallucis longus was resected. A whip stitch was placed inside the tendon securely and a 5 x 10 Quattro Link was utilized to secure the tendon into the metatarsal. Following this attention was directed to the first interphalangeal joint where resection was made under fluoroscopic guidance of the distal interphalangeal joint this was fenestrated and temporarily pinned with retrograded 0.62 K-wire and then anterograded down the central aspect of the proximal phalanx. At this time a 4.0 x 40 VPC screw was placed into the digit gaining adequate compression and then a 10 x 8 staple was then introduced at the dorsal aspect of the site in order to close down any remaining noncompressed areas. At that time we moved on to the hammer toe of digits 2, 3 and 4 to the bilateral lower extremities which were performed in a similar fashion. At this time a linear incision was made over the proximal phalanx in a curvilinear fashion over the proximal interphalangeal joint where significant contractures were identified. At this time the capsule was released centrally and then J-strokes were performed to the lateral collateral and medial collateral ligaments in order to release these ligaments from their soft tissue attachment. The head of the proximal phalanx was removed from digits 2, 3 and 4 and then the base was then removed of cartilage for the middle phalanx of digits 2, 3 and 4. At this time copious amounts of sterile saline were utilized to flush the surgical sites. A derotational arthroplasty was then performed on the fifth digit of the right foot. The proximal phalangeal head was inspected. Following this copious amounts of sterile saline were utilized to flush the surgical sites. K-wires were retrograded down to the fifth digit toe and then anterograded through the proximal phalanx following longitudinal cortex in order to gain entrance into the medullary cavity. Respectively for the right foot, a 3.0 x 36 mm was used for the second digit, a 3.0x 34 mm headless compression screw was used for the third digit and a 2.5 x 28 headless compression screw was used for the fourth digit. The tourniquet was then dropped at 61 total tourniquet minutes. The incisions were coapted in cutaneous fashion utilizing 4-0 Monocryl and then 3-0 Nylon was utilized in a horizontal mattress-type fashion to coapt the skin in an everted-type fashion. Following this, a dressing consisting of Betadine, Adaptic, 4x4, Kerlix and BRENDEN were applied to the right lower extremity. Following this, the left foot the tourniquet was inflated. Linear incisions were made over the dorsal aspects of digits 2, 3 and 4, and a derotational arthroplasty was performed to the fifth digit in a similar fashion f not exact to the right lower extremity. The procedure was then the same from here on out. Dressing was applied consisting of Betadine, Adaptic, 4x4, Kerlix and BRENDEN. At this time the patient was provided a block consisting of 30 cc of 1:1 mixture of 1% lidocaine plain and 0.5% bupivacaine plain injected and then the patient was reversed from anesthesia and returned to the postoperative anesthesia care unit with vital signs stable and vascular status intact. The patient handled the anesthesia as well as the procedure without significant complication. Postoperative orders as indicated in the patient's discharge chart.
== END 2023-03-15 17:30 | disposition home or self-care (01) ==
LOC: SDC 07:55
PROVIDERS: ATTEND Podiatrist Foot & Ankle Surgery
DX: M24.575 Contracture, left foot (principal); M24.574 Contracture, right foot; M79.672 Pain in left foot; M79.671 Pain in right foot; M20.31 Hallux varus (acquired), right foot; R26.2 Difficulty in walking, not elsewhere classified
CPT/HCPCS: 36415; 73630; 76000; 80053; 81001; 84703; 85027; 85610; 85730; 87077; 87086; 87186; J0690; J1100; J1885; J2250; J2405; J2704; J3010

== ENCOUNTER 2023-11-16 15:24 | Emergency (ER) | payer MEDICAID ==
[2023-11-16] MEDS ORDERED: Sodium Chloride 0.9% 1000 ML 1,000 ML IV STA (15:51)
[2023-11-16] MEDS ORDERED: TYLENOL 325 MG PO ONE (15:51)
[2023-11-16 16:03] VITALS: TEMP 98.6
[2023-11-16 16:23] LABS: Absolute Neutrophil Ct (ANC) 9.59 x10^3/uL (1.4-6.9); BASOPHIL % 0.2 % (0.0-0.4); Basophil (Absolute #) 0.02 x10^3/uL (0-0.4); Eosinophil % 0.1 % (0.00-5.0); Eosinophil (Absolute #) 0.01 x10^3/uL (0-0.5); Hematocrit 40.9 % (35-47); IMMATURE GRAN # 0.04 x10^3u/L (0.00-0.03); IMMATURE GRAN % 0.3 % (0.00-0.4); Lymphocyte (Absolute #) 2.68 x10^3/uL (1.0-4.6); Lymphocytes % 20.6 % (24.0-44.0); Mean Cell Volume 90.3 fL (78-100); Mean Corpuscular Hemoglobin 28.7 pg (26-32); Mean Corpuscular Hgb Concent. 31.8 g/dL (32-36); Mean Platelet Volume 11.3 fL (7.5-11.0); Monocyte (Absolute #) 0.67 x10^3/uL (0.0-1.3); Monocytes % 5.1 % (0.0-12.0); Neutrophil % 73.7 % (36.0-66.0); Platelet Count 255 x10^3/uL (150-450); Red Blood Count 4.53 x10^6/uL (4.1-5.4); Red Cell Distribution Width 13.7 % (11.5-14.0)
[2023-11-16 16:49] LABS: ALBUMIN 4.5 g/dL (3.5-5.0); ANION GAP 14.9 MEQ/L (5-15); BILIRUBIN,TOTAL 0.5 mg/dL (0.2-1.3); Calcium 9.6 mg/dL (8.4-10.2); Creatinine 1 0.51 mg/dL (0.52-1.04); EST GLOMERULAR FILTRATION RATE 120.9 ML/MIN
[2023-11-16] MEDS ORDERED: TYLENOL 325 MG ONE (16:51)
[2023-11-16] MEDS ORDERED: Sodium Chloride 0.9% 1000 ML 1,000 ML ONE (16:51)
[2023-11-16 17:21] LABS: HCG URINE TEST NEGATIVE (NEGATIVE)
[2023-11-16 17:29] LABS: Appearance Turbid (Clear); Bacteria Few /HPF (None Seen); Bilirubin Negative (Negative); Blood Moderate (Negative); Epithelial Cells Few /HPF (None Seen); Glucose, Urine Negative (Negative); Ketones Trace (Negative); Leukocyte Esterase Large (Negative); Nitrite Positive (Negative); Ph 6.5 (4.6-8.0); Protein,Urine Dip Trace (Negative); Urobilinogen 0.2 mg/dL (0.2); WBC >100 /HPF (0-5)
[2023-11-16 17:30] LABS: ADD URINE CULTURE? YES (NO)
[2023-11-16 17:54] VITALS: RESP 16; O2SAT 100
[2023-11-16] MEDS ORDERED: ROCEPHIN 2 Gm-D5w 50ML BAG** 2 G/50 ML IVPB IV STA (18:14)
[2023-11-16] MEDS ORDERED: ROCEPHIN 2 Gm-D5w 50ML BAG** 2 G/50 ML IVPB IV ONE (18:18)
[2023-11-16] MEDS ORDERED: MORPHINE SULFATE 4 MG INJ IV ONE (18:41)
[2023-11-16] MEDS ORDERED: Zofran 4 MG/2 ML VIAL IV ONE (18:41)
[2023-11-16] MEDS ORDERED: MORPHINE SULFATE 4 MG INJ ONE (18:47)
[2023-11-16] MEDS ORDERED: Zofran 4 MG/2 ML VIAL ONE (18:47)
--- NOTE | 2023-11-16 18:58 | XRAY ---
CLINICAL HISTORY:left side pain COMPARISON:None. TECHNIQUE:A CT scan of the abdomen and pelvis was performed without IV contrast. Coronal and sagittal reconstructive images were also obtained. FINDINGS: Chest: There is pleural thickening in both lung bases. Abdomen: The liver is normal in size measuring 16.1 cm craniocaudally. No diffuse or focal parenchymal abnormality. The portal vein, intrahepatic biliary radicals, and the bile ducts are normal. The spleen, pancreas, and adrenal glands are unremarkable. The kidneys are normal in size and shape. No cysts, mass, calculi, or hydronephrosis. The gallbladder is absent with surgical clips within the gallbladder fossa. The ascending colon, the transverse colon, the descending colon, visualized small bowel loops are unremarkable. The appendix is normal. There is no evidence of significant enlargement of the mesenteric or retroperitoneal lymph nodes. Atherosclerotic aorta and some of its branches. Pelvis: The urinary bladder is unremarkable. The uterus is normal. No adnexal mass. The pelvic vasculature is unremarkable. No evidence of pelvic lymphadenopathy. There are mild anterior compression deformities at the T12 and L1 vertebral bodies. IMPRESSION: 1. No acute intra-abdominal findings. 2. Mild anterior compression deformities at T12 and L1 vertebral bodies. Electronically Signed by: Jigna Sood MD. (11/16/2023 18:54:36 EST)
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
[2023-11-16 19:43] VITALS: BP 143/87; PULSE 70
[2023-11-16] MEDS ORDERED: NORCO 5/325 MG PO ONE (19:47)
[2023-11-16] MEDS ORDERED: NORCO 5/325 MG ONE (20:11)
== END 2023-11-16 20:23 | disposition home or self-care (01) ==
LOC: ED 15:24
DX: N39.0 Urinary tract infection, site not specified (principal); R10.32 Left lower quadrant pain; R10.2 Pelvic and perineal pain; R30.0 Dysuria; G82.50 Quadriplegia, unspecified; Z79.899 Other long term (current) drug therapy; Z28.310 Unvaccinated for COVID-19
CPT/HCPCS: 36000; 36415; 74176; 80053; 81001; 81025; 83605; 83690; 85025; 87077; 87086; 87186; 96374; 96375; 99284; J0696; J2270; J2405; A9270-GY

== ENCOUNTER 2024-07-01 10:02 | Day surgery (SDC) | payer MEDICAID ==
[2024-07-01] MEDS ORDERED: LIDOCAINE HCL 1% 50 MG/5 ML VL PF IJ ONE (10:03)
[2024-07-01] MEDS ORDERED: Decadron 4 MG INJ IV ONE (10:03)
[2024-07-01] MEDS ORDERED: Sodium Chloride 0.9(Preservative Free) 10 ML IJ ONE (10:03)
[2024-07-01 11:43] LABS: HCG SERUM TEST NEGATIVE (NEGATIVE)
[2024-07-01] MEDS ORDERED: DIPRIVAN 200 MG/20 ML IV ONE (12:00)
--- NOTE | 2024-07-01 13:21 | XRAY ---
Indication: Left piriformis injection. Intraoperative fluoroscopy provided for 41 seconds. Single digital spot image submitted for interpretation demonstrates posterior needle tip projecting over the expected left piriformis. Small amount of contrast injected for needle tip placement. Correlate with intraoperative findings/report.
--- NOTE | 2024-07-01 13:21 | XRAY ---
Indication: Left L5-S2 transforaminal NICKOLAS. Intraoperative fluoroscopy provided for 41 seconds. 6 digital spot images submitted for interpretation demonstrates posterior needle tips projecting over the expected left L5 and S1 nerve roots. Small amount of contrast injected for needle tip placement. Correlate with intraoperative findings/report.
--- NOTE | 2024-07-01 13:39 | XRAY ---
7 seconds of fluoroscopy was used in surgery for a left piriformis injection.
--- NOTE | 2024-07-01 13:40 | XRAY ---
41 seconds of fluoroscopy was used in surgery for a left L5-S2 transforaminal NICKOLAS.
[2024-07-01] MEDS ORDERED: Lactated Ringers 1,000 ML IV ONE (15:01)
== END 2024-07-01 12:59 ==
LOC: SDC-PAIN 10:02
PROVIDERS: ATTEND Psychiatry & Neurology Pain Medicine
DX: M54.16 Radiculopathy, lumbar region (principal); M79.18 Myalgia, other site
CPT/HCPCS: 20552; 36415; 64483; 64484; 72100; 72170; 77002; 77003; 84703; J1100; J2001; J2704; Q9966

== ENCOUNTER → 2024-10-07 | Day surgery (SDC) | payer MEDICAID | LOC: SDC-PAIN 11:59 | PROVIDERS: ATTEND Psychiatry & Neurology Pain Medicine | DX: Z53.8 Procedure and treatment not carried out for other reasons (principal) ==

== ENCOUNTER 2025-03-18 13:22 | Day surgery (SDC) | payer MEDICAID ==
[2025-03-18] MEDS ORDERED: dexAMETHasone sodium phosphate IJ ONE (13:23)
[2025-03-18] MEDS ORDERED: Depo-Medrol 40 MG/ML IM ONE (13:23)
[2025-03-18] MEDS ORDERED: LIDOCAINE HCL 1% AMPUL 5 ML IJ ONE (13:23)
[2025-03-18] MEDS ORDERED: Sodium Chloride 0.9(Preservative Free) 10 ML IJ ONE (13:23)
[2025-03-18 14:50] LABS: HCG SERUM TEST NEGATIVE (NEGATIVE)
[2025-03-18] MEDS ORDERED: propofoL IV ONE (15:40)
--- NOTE | 2025-03-18 19:27 | XRAY ---
21 seconds of fluoroscopy was used in surgery for a caudal NICKOLAS.
--- NOTE | 2025-03-18 19:27 | XRAY ---
11 seconds of fluoroscopy was used in surgery for a left piriformis injection.
--- NOTE | 2025-03-18 19:44 | XRAY ---
Indication: Caudal NICKOLAS. Intraoperative fluoroscopy provided for 21 seconds. 2 digital spot image submitted for interpretation demonstrates caudal needle tip projecting mid sacrum. Small amount of contrast injected for needle tip placement. Correlate with intraoperative findings/report.
--- NOTE | 2025-03-18 19:45 | XRAY ---
Indication: Left piriformis injection. Intraoperative fluoroscopy provided for 11 seconds. Single digital spot image submitted for interpretation demonstrates posterior needle to projecting over left piriformis. Small amount of contrast injected for needle tip placement. Correlate with intraoperative findings/report.
== END 2025-03-18 16:39 | disposition home or self-care (01) ==
LOC: SDC-PAIN 13:22
PROVIDERS: ATTEND Psychiatry & Neurology Pain Medicine
DX: M54.16 Radiculopathy, lumbar region (principal)
CPT/HCPCS: 20552; 36415; 62323; 72170; 72220; 77002; 84703; J1100; J2704; Q9966